=== PATIENT | female | born 1960 | race Caucasian/White ===

== ENCOUNTER 2019-01-12 23:16 | Emergency (ER) | payer SELFPAY ==
[2019-01-12 23:53] VITALS: BP 108/74; PULSE 90; TEMP 97.6; BMI 31.9
--- NOTE | 2019-01-13 00:51 | PDOC ---
History of Present Illness - General Chief Complaint: Headache Stated Complaint: PAIN/DIARRHEA/HEADACHE Time Seen by Provider: 01/13/19 00:50 - History of Present Illness Initial Comments: 01/13/19 00:50 Ms. Santa is a 58 yo female w/ pmh of diverticulitis in the past who presents for evaluation of symptoms of 3 day history of abdominal pain with nausea and multiple episodes of diarrhea. Patient denies any vomiting however also endorses fever yesterday and 2 day history of frontal headache that was slow in onset and she describes as frontal. Of note, daughter's is sick with the same symptoms over the same time course. The patient denies chest pain, shortness of breath, and dizziness. Denies chills , vomit, and constipation. Denies dysuria, frequency, urgency and hematuria. Past History - Past Medical History Allergies/Adverse Reactions: Allergies Allergy/AdvReac Type Severity Reaction Status Date / Time No Known Allergies Allergy Verified 01/12/19 23:53 - Suicide/Smoking/Psychosocial Hx Smoking History: Never smoked Have you smoked in the past 12 months: No Information on smoking cessation initiated: No Hx Alcohol Use: No Drug/Substance Use Hx: No Review of Systems - Review of Systems Comments:: 01/13/19 00:51 GENERAL/CONSTITUTIONAL: +Fever as described. No chills. No weakness. HEAD, EYES, EARS, NOSE AND THROAT: No change in vision. No ear pain or discharge. No sore throat. CARDIOVASCULAR: No chest pain or shortness of breath RESPIRATORY: No cough, wheezing, or hemoptysis. GASTROINTESTINAL: +Multiple episodes of diarrhea. Nausea without vomiting or constipation. GENITOURINARY: No dysuria, frequency, or change in urination. MUSCULOSKELETAL: No joint or muscle swelling or pain. No neck or back pain. SKIN: No rash NEUROLOGIC: +Headache as described. No vertigo, loss of consciousness, or change in strength/sensation. ENDOCRINE: No increased thirst. No abnormal weight change HEMATOLOGIC/LYMPHATIC: No anemia, easy bleeding, or history of blood clots. ALLERGIC/IMMUNOLOGIC: No hives or skin allergy. *Physical Exam - Vital Signs Last Vital Signs Temp Pulse Resp BP Pulse Ox 97.6 F 90 18 108/74 98 01/12/19 23:18 01/12/19 23:18 01/12/19 23:18 01/12/19 23:18 01/12/19 23:18 - Physical Exam Comments: 01/13/19 00:51 GENERAL: Awake, alert, and fully oriented, in no acute distress HEAD: No signs of trauma, normocephalic, atraumatic EYES: PERRLA, EOMI, sclera anicteric, conjunctiva clear ENT: Auricles normal inspection, hearing grossly normal, nares patent, oropharynx clear without exudates. Moist mucosa NECK: Normal ROM, supple, no lymphadenopathy, JVD, or masses LUNGS: No distress, speaks full sentences, clear to auscultation bilaterally HEART: Regular rate and rhythm, normal S1 and S2, no murmurs, rubs or gallops, peripheral pulses normal and equal bilaterally. ABDOMEN: +Diffuse abdominal discomfort to palpation. Soft, normoactive bowel sounds. No guarding, no rebound. No masses EXTREMITIES: Normal inspection, Normal range of motion, no edema. No clubbing or cyanosis. NEUROLOGICAL: Cranial nerves II through XII grossly intact. Normal speech, normal gait, no focal sensorimotor deficits SKIN: Warm, Dry, normal turgor, no rashes or lesions noted. ED Treatment Course - LABORATORY CBC & Chemistry Diagram: 01/13/19 01:51 01/13/19 01:51 Medical Decision Making - Medical Decision Making 01/13/19 03:07 Ms. Santa is a 58 yo female w/ pmh as described who presents for evaluation of symptoms concerning for diverticulitis vs. viral illness vs. GERD. Patient evaluated with labs as below and given hydration with symptomatic medications. Patient labs grossly wnl. Patient reporting improvement of symptoms with this treatment. Patient history most consistent w/ viral illness. Patient currently pending PO challenge. 01/13/19 04:24 Patient successfully passed PO challenge. Discharging to home. Laboratory Results - last 24 hr 01/13/19 01/13/19 01/13/19 01:51 01:51 03:08 WBC 7.2 RBC 4.32 Hgb 12.9 Hct 37.8 MCV 87.6 MCH 30.0 MCHC 34.2 RDW 13.7 Plt Count 231 MPV 7.2 L Absolute Neuts (auto) 4.7 Neutrophils % 65.2 Lymphocytes % 26.1 Monocytes % 7.5 Eosinophils % 0.8 Basophils % 0.4 Nucleated RBC % 0 Sodium 137 Potassium 4.2 Chloride 107 Carbon Dioxide 25 Anion Gap 5 L BUN 9 Creatinine 0.5 L Est GFR (CKD-EPI)AfAm 125.40 Est GFR (CKD-EPI)NonAf 108.19 Random Glucose 97 Calcium 8.9 Total Bilirubin 0.5 AST 30 ALT 21 Alkaline Phosphatase 86 Total Protein 6.9 Albumin 3.4 Lipase 106 Urine Color Yellow Urine Appearance Clear Urine pH 5.5 Ur Specific [place] 1.008 L Urine Protein Negative Urine Glucose (UA) Negative Urine Ketones Negative Urine Blood 1+ H Urine Nitrite Negative Urine Bilirubin Negative Urine Urobilinogen 0.2 Ur Leukocyte Esterase Trace Urine WBC (Auto) 5-10 Urine RBC (Auto) 3-5 Urine Casts (Auto) 0 U Pathogenic Cast Auto 0 U Epithel Cells (Auto) 3-5 Urine Bacteria (Auto) Few Urine Yeast (Auto) Negative *DC/Admit/Observation/Transfer Diagnosis at time of Disposition: Abdominal pain Qualifiers: Abdominal location: unspecified location Qualified Code(s): R10.9 - Unspecified abdominal pain - Discharge Dispostion Disposition: HOME Condition at time of disposition: Fair - Referrals - Patient Instructions Printed Discharge Instructions: DI for Abdominal Pain-Adult Additional Instructions: You were evaluated today in the ER for your symptoms. We performed laboratory evaluation and gave you medications for your symptoms. Your labs were non- concerning and your symptoms improved with medication. We believe you have a viral illness. You may take over the counter tylenol for your pain. Make sure to drink plenty of fluids. Return to ER if any change in abdominal pain, fever, chills, or other concerning symptoms. Usted fue evaluado hoy en la katia de emergencias por giovanna sntomas. Realizamos damien evaluacin de laboratorio y le dimos medicamentos para giovanna sntomas. Giovanna laboratorios no fueron preocupantes y giovanna sntomas mejoraron con la medicacin. Creemos que tienes damien enfermedad viral. Usted puede jocy el tylenol contador para damon dolor. Asegrese de beber muchos lquidos. Regrese a la katia de emergencias si hay algn cambio en el dolor abdominal, fiebre, escalofros u otros sntomas relacionados. Print Language: HEBREW - Post Discharge Activity
[2019-01-13] MEDS ORDERED: SODIUM CHLORIDE 1,000 ML IV STA (01:03)
[2019-01-13] MEDS ORDERED: ACETAMINOPHEN 1000 MG/100 ML VIAL (NON FORMULARY) IVPB ONE (01:03)
[2019-01-13] MEDS ORDERED: FAMOTIDINE 20 MG/50 ML IVPB 20 MG/50 ML MG IVPB ONE ×2 (01:03→01:48)
[2019-01-13] MEDS ORDERED: ONDANSETRON 4 MG/2 ML VIAL IVPUSH ONE (01:03)
[2019-01-13] MEDS ORDERED: ACETAMINOPHEN INJECTION 100 ML IVPB ONE (01:47)
[2019-01-13] MEDS ORDERED: ONDANSETRON 4 MG/2 ML VIAL ONE (01:47)
[2019-01-13 02:03] LABS: BASO % 0.4 % (0-2.0); EOS % 0.8 % (0-4.5); HEMATOCRIT 37.8 % (32.4-45.2); HEMOGLOBIN 12.9 GM/dL (10.7-15.3); LYMPH % 26.1 % (8-40); MCHC 34.2 g/dl (32.0-36.0); MEAN CELL VOLUME 87.6 fl (80-96); MEAN PLT VOLUME 7.2 fl (7.5-11.1); MONO % 7.5 % (3.8-10.2); NEUT % 65.2 % (42.8-82.8); PLATELET COUNT 231 K/MM3 (134-434); RBC 4.32 M/mm3 (3.60-5.2); RDW 13.7 % (11.6-15.6); WHITE BLOOD COUNT 7.2 K/mm3 (4.0-10.0)
--- NOTE | 2019-01-13 02:32 | PDOC ---
Documentation entered by Migdalia Park SCRIBE, acting as scribe for Sukhwinder Miguel MD. Sukhwinder Miguel MD: This documentation has been prepared by the Vivian cardenas Daisy, SCRIBE, under my direction and personally reviewed by me in its entirety. I confirm that the documentation accurately reflects all work, treatment, procedures, and medical decision making performed by me. Attending Attestation - Resident Resident Name: ErvinadryStas - ED Attending Attestation I have performed the following: I have examined & evaluated the patient, The case was reviewed & discussed with the resident, I agree w/resident's findings & plan, Exceptions are as noted - HPI HPI: 01/13/19 01:01 The patient is a 58YOF with a PMH of diverticulitis who presents to the ER with a 3 day history of abdominal pain, nausea, and diarrhea. Pt states that she started having symptoms 3 days ago. Endorses one day of fevers but none today. States that she has pain all over her abdomen. Has been having several episodes of loose nonbloody stool per day. Endorses nausea without vomiting. She reports the symptoms do not feel similar to her prior diverticulitis. Positive sick contact at home. Allergies: NKDA - Physicial Exam PE: 01/13/19 02:31 "GENERAL: Awake, alert, and fully oriented, in no acute distress. HEAD: No signs of trauma EYES: PERRLA, EOMI, sclera anicteric, conjunctiva clear ENT: Auricles normal inspection, hearing grossly normal, nares patent, oropharynx clear without exudates. Moist mucosa NECK: Nontender, no stepoffs, Normal ROM, supple, no lymphadenopathy, JVD, or masses LUNGS: Breath sounds equal, clear to auscultation bilaterally. No wheezes, and no crackles HEART: Regular rate and rhythm, normal S1 and S2, no murmurs, rubs or gallops ABDOMEN: Soft, nontender, normoactive bowel sounds. No guarding, no rebound. No masses EXTREMITIES: Normal range of motion, no edema. No clubbing or cyanosis. No cords, erythema, or tenderness NEUROLOGICAL: Cranial nerves II through XII intact. 5/5 strength and sensation in all extremities, Normal speech, normal gait, normal cerebellar function SKIN: Warm, Dry, normal turgor, no rashes or lesions noted. - Medical Decision Making 01/13/19 02:31 58 F with nausea, abdominal pain, and diarrhea. Suspect gastroenteritis. Pt without any abdominal tenderness on exam, making diverticulitis/colitis/appy unlikely. - Labs - IVF, GI cocktail - PO trial 01/13/19 02:54 Labs wnl Will PO challenge
[2019-01-13 02:51] LABS: ALBUMIN 3.4 g/dl (3.4-5.0); BILIRUBIN,TOTAL 0.5 mg/dL (0.2-1); CALCIUM 8.9 mg/dL (8.5-10.1); CREATININE 0.5 mg/dL (0.55-1.3); POTASSIUM 4.2 mmol/L (3.5-5.1); TOT PROT 6.9 g/dl (6.4-8.2)
[2019-01-13 03:41] LABS: PH,URINE 5.5 (5.0-8.0); URINE APPEARANCE CLEAR; URINE BILIRUBIN NEGATIVE (NEGATIVE); URINE COLOR YELLOW; URINE GLUCOSE (UA) NEGATIVE (NEGATIVE); URINE KETONE NEGATIVE (NEGATIVE); URINE LEUK ESTERASE TRACE (NEGATIVE); URINE NITRITE NEGATIVE (NEGATIVE); URINE PROTEIN NEGATIVE (NEGATIVE); URINE UROBILINOGEN 0.2 mg/dL (0.2-1.0)
[2019-01-13 04:04] LABS: URINE BACTERIA FEW /hpf (NEGATIVE); URINE CASTS 0 /lpf (0-8)
[2019-01-13 04:05] LABS: YEAST NEGATIVE (NEGATIVE)
== END 2019-01-13 04:36 | disposition home or self-care (01) ==
LOC: JER 23:16
PROC: 3E033GC Introduction of Other Therapeutic Substance into Peripheral Vein, Percutaneous Approach (ICD-10-PCS; principal; 2019-01-12)
PROC: 3E033GC Introduction of Other Therapeutic Substance into Peripheral Vein, Percutaneous Approach (ICD-10-PCS; 2019-01-12)
PROC: 3E033NZ Introduction of Analgesics, Hypnotics, Sedatives into Peripheral Vein, Percutaneous Approach (ICD-10-PCS; 2019-01-12)
DX: R10.9 Unspecified abdominal pain (principal)
CPT/HCPCS: 36415; 80053; 81003; 83690; 85025; 87086; 99283-25; J0131; J7030

== ENCOUNTER 2022-06-18 21:41 | Inpatient (IN) | payer OTHER ==
[2022-06-18] MEDS ORDERED: ACETAMINOPHEN 1000 MG/100 ML BAG IVPB ONE (22:39)
[2022-06-18] MEDS ORDERED: LACTATED RINGERS SOLUTION 1,000 ML/1,000 ML INFUS.BAG IV SCH (22:45)
[2022-06-18] MEDS ORDERED: ACETAMINOPHEN INJECTION 100 ML IVPB ONE (22:56)
[2022-06-18 23:21] LABS: BASO % 0.5 % (0-2.0); EOS % 1.5 % (0-4.5); HEMOGLOBIN 12.5 GM/dL (10.7-15.3); LYMPH % 31.7 % (8-40); MCH 29.9 pg (25.7-33.7); MCHC 34.6 g/dl (32.0-36.0); MEAN CELL VOLUME 86.2 fl (80-96); MEAN PLT VOLUME 6.5 fl (7.5-11.1); MONO % 10.3 % (3.8-10.2); PLATELET COUNT 273 10^3/uL (134-434); RBC 4.18 M/mm3 (3.60-5.2); RDW 14.1 % (11.6-15.6); WHITE BLOOD COUNT 8.7 K/mm3 (4.0-10.0)
[2022-06-18] MEDS ORDERED: morphine CARPU-JECT 2 MG/1 ML DISP.SYRIN IVPUSH ONE (23:41)
[2022-06-18 23:43] LABS: ALBUMIN 3.2 g/dl (3.4-5.0); BLOOD UREA NITROGEN 7.2 mg/dL (7-18); CALCIUM 8.7 mg/dL (8.5-10.1)
[2022-06-18 23:46] LABS: BILIRUBIN,TOTAL 0.3 mg/dL (0.2-1); CREATININE 0.5 mg/dL (0.55-1.3)
[2022-06-18 23:47] LABS: TOT PROT 6.8 g/dl (6.4-8.2)
[2022-06-19] MEDS ORDERED: ALBUTEROL SO4 0.083% IH SOL 2.5 MG/3 ML VIAL.NEB. NEB ONE (00:29)
[2022-06-19 02:57] LABS: EPI CELLS 20 /uL (0-25.1); HYALINE CASTS 0 /uL (0-3.1); PH,URINE 6.5 (5.0-8.0); URINE APPEARANCE CLEAR; URINE BACTERIA 493 /uL (0-1359); URINE BILIRUBIN NEGATIVE (NEGATIVE); URINE COLOR YELLOW; URINE GLUCOSE (UA) NEGATIVE (NEGATIVE); URINE KETONE NEGATIVE (NEGATIVE); URINE LEUK ESTERASE NEGATIVE (NEGATIVE); URINE NITRITE NEGATIVE (NEGATIVE); URINE PROTEIN NEGATIVE (NEGATIVE); URINE RBC 30 /uL (0-23.9); URINE UROBILINOGEN 0.2 mg/dL (0.2-1.0); URINE WBC 16 /uL (0-25.8)
[2022-06-19] MEDS ORDERED: PIPERACILLIN/TAZOB 4.5 GM 4.5 GM in DEXTROSE 5%-WATER 100 ML IVPB ONE (11:00)
[2022-06-19] MEDS ORDERED: PIPERACILLIN/TAZOB 4.5 GM 4.5 GM/100 ML BAG IVPB ONE (12:00)
[2022-06-19] MEDS ORDERED: CEFTRIAXONE 1 GM/50 ML BAG ONE (12:01)
[2022-06-19 13:27] VITALS: BMI 30.2
[2022-06-19] MEDS ORDERED: ACETAMINOPHEN 500 MG TABLET (FP) PO PRN (20:38)
[2022-06-19] MEDS ORDERED: LACTATED RINGERS SOLUTION 1,000 ML/1,000 ML INFUS.BAG IV SCH (20:45)
[2022-06-19] MEDS ORDERED: ZOLPIDEM TARTRATE 5 MG TABLET PO ONE (23:42)
[2022-06-20] MEDS ORDERED: CEFTRIAXONE 1 GM in DEXTROSE 5%-WATER - 50 ML IVPB SCH (10:00)
[2022-06-20 10:24] LABS: BASO % 0.7 % (0-2.0); HEMATOCRIT 36.2 % (32.4-45.2); HEMOGLOBIN 12.7 GM/dL (10.7-15.3); LYMPH % 35.3 % (8-40); MCHC 35.1 g/dl (32.0-36.0); MEAN CELL VOLUME 85.5 fl (80-96); MEAN PLT VOLUME 6.4 fl (7.5-11.1); MONO % 7.9 % (3.8-10.2); NEUT % 55.1 % (42.8-82.8); PLATELET COUNT 296 10^3/uL (134-434); RBC 4.24 M/mm3 (3.60-5.2); RDW 13.8 % (11.6-15.6); WHITE BLOOD COUNT 5.5 K/mm3 (4.0-10.0)
[2022-06-20 10:33] LABS: INR 1.15 (0.83-1.09); PROTHROMBIN TIME (PATIENT) 13.2 SEC (9.7-13.0)
[2022-06-20 10:36] LABS: ACTIVATED PTT 31.2 SECONDS (25.2-36.5)
[2022-06-20 10:50] LABS: ALBUMIN 3.2 g/dl (3.4-5.0); BLOOD UREA NITROGEN 6.7 mg/dL (7-18); CALCIUM 9.2 mg/dL (8.5-10.1)
[2022-06-20 10:54] LABS: CREATININE 0.5 mg/dL (0.55-1.3)
[2022-06-20 10:55] LABS: BILIRUBIN,TOTAL 0.4 mg/dL (0.2-1); TOT PROT 6.6 g/dl (6.4-8.2)
[2022-06-20] MEDS ORDERED: BUPIVACAINE HCL/PF 0.5% (5MG/ML) 10 ML VIAL ONE (13:21)
[2022-06-20] MEDS ORDERED: BUPIVACAINE HCL/PF 0.25% (2.5MG/ML) 10 ML VIAL ONE (13:21)
[2022-06-20] MEDS ORDERED: BUPIVACAINE HCL/PF 0.25% (2.5MG/ML) 10 ML VIAL IJ ONE ×4 (13:45→15:17)
[2022-06-20] MEDS ORDERED: SUCCINYLCHOLINE CHLORIDE 200 MG/10 ML SYRINGE ONE (14:43)
[2022-06-20] MEDS ORDERED: ROCURONIUM BROMIDE 50 MG/5 ML SYRINGE ONE (14:43)
[2022-06-20] MEDS ORDERED: PROPOFOL 20 ML ONE (14:43)
[2022-06-20] MEDS ORDERED: ONDANSETRON 4 MG/2 ML VIAL IVPUSH PRN ×2 (14:45→16:20)
[2022-06-20] MEDS ORDERED: LACTATED RINGERS SOLUTION 1,000 ML IV SCH (14:45)
[2022-06-20] MEDS ORDERED: ALBUTEROL SO4 0.083% IH SOL 2.5 MG/3 ML VIAL.NEB. NEB ONE (14:56)
[2022-06-20] MEDS ORDERED: ONDANSETRON 4 MG/2 ML VIAL ONE (15:05)
[2022-06-20] MEDS ORDERED: DEXAMETHASONE SOD PHOSPHATE 4 MG/1 ML VIAL ONE (15:05)
[2022-06-20] MEDS ORDERED: KETOROLAC TROMETHAMINE 30 MG/1 ML VIAL ONE (15:05)
[2022-06-20] MEDS ORDERED: HYDROmorphone HCl 2 MG/ML VIAL ONE (15:28)
[2022-06-20] MEDS ORDERED: GLYCOPYRROLATE 0.2 MG/1 ML VIAL ONE ×2 (15:29)
[2022-06-20] MEDS ORDERED: NEOSTIGMINE METHYLSULFATE 0.5 MG/ML - 10 ML MDV ONE (15:29)
[2022-06-20] MEDS ORDERED: ACETAMINOPHEN 500 MG TABLET (FP) PO PRN (16:20)
[2022-06-20] MEDS ORDERED: oxyCODONE HCL 5 MG TABLET PO PRN (16:36)
[2022-06-20] MEDS: LACTATED RINGERS SOLUTION 1,000 ML IV SCH (17:55)
[2022-06-21] MEDS ORDERED: MELATONIN 5 MG TABLETS PO ONE (00:04)
[2022-06-21 04:31] VITALS: RESP 18
[2022-06-21 08:59] LABS: HEMATOCRIT 36.5 % (32.4-45.2); HEMOGLOBIN 12.5 GM/dL (10.7-15.3); MCH 29.3 pg (25.7-33.7); MCHC 34.3 g/dl (32.0-36.0); MEAN CELL VOLUME 85.4 fl (80-96); MEAN PLT VOLUME 6.5 fl (7.5-11.1); PLATELET COUNT 326 10^3/uL (134-434); RBC 4.28 M/mm3 (3.60-5.2); RDW 13.5 % (11.6-15.6); WHITE BLOOD COUNT 10.6 K/mm3 (4.0-10.0)
[2022-06-21 09:28] LABS: ALBUMIN 2.9 g/dl (3.4-5.0); CALCIUM 9.1 mg/dL (8.5-10.1); MAGNESIUM 1.8 mg/dL (1.8-2.4)
[2022-06-21 09:31] LABS: CREATININE 0.5 mg/dL (0.55-1.3)
[2022-06-21 09:32] LABS: PHOSPHOROUS 3.9 mg/dL (2.5-4.9)
[2022-06-21 09:33] LABS: BILIRUBIN,TOTAL 0.4 mg/dL (0.2-1); TOT PROT 6.2 g/dl (6.4-8.2)
[2022-06-21 11:04] LABS: ERYTHROCYTE SEDIMENTATION RATE 23 mm/hr (0-30)
[2022-06-21 16:07] VITALS: BP 133/71; PULSE 72; TEMP 98.8
[2022-06-21] MEDS: LACTATED RINGERS SOLUTION 1,000 ML IV SCH (18:54)
== END 2022-06-21 20:30 | disposition home or self-care (01) | DRG 263 ==
LOC: JER 21:41 → JERBED 06-19 11:01 → J8W 06-19 12:41
PROVIDERS: ADMIT Internal Medicine; ATTEND Internal Medicine
PROC: 0FT44ZZ Resection of Gallbladder, Percutaneous Endoscopic Approach (ICD-10-PCS; principal; 2022-06-20 17:30)
DX: K80.12 Calculus of gallbladder with acute and chronic cholecystitis without obstruction (principal); R10.11 Right upper quadrant pain
CPT/HCPCS: 36415; 74177-TC; 76705-TC; 80053; 81003; 83690; 83735; 84100; 85025; 85027; 85610; 85651; 85730; 86140; 86850; 86900; 86901; 87086; 88304-TC; 94010; 94760; 99285-25; C9803-CS; Q9967; U0003; U0005

== ENCOUNTER 2022-06-26 19:33 | Inpatient (IN) | payer OTHER ==
[2022-06-26 19:45] VITALS: BMI 30.2
[2022-06-26] MEDS ORDERED: IBUPROFEN 600 MG TABLET (FP) PO ONE ×2 (21:17→21:57)
[2022-06-26 22:11] LABS: BASO % 0.7 % (0-2.0); HEMATOCRIT 40.1 % (32.4-45.2); HEMOGLOBIN 13.9 GM/dL (10.7-15.3); LYMPH % 26.1 % (8-40); MCH 29.9 pg (25.7-33.7); MCHC 34.6 g/dl (32.0-36.0); MEAN CELL VOLUME 86.5 fl (80-96); MEAN PLT VOLUME 6.3 fl (7.5-11.1); MONO % 6.9 % (3.8-10.2); NEUT % 64.3 % (42.8-82.8); PLATELET COUNT 409 10^3/uL (134-434); RBC 4.64 M/mm3 (3.60-5.2); RDW 13.7 % (11.6-15.6); WHITE BLOOD COUNT 11.4 K/mm3 (4.0-10.0)
[2022-06-26 22:24] LABS: CALCIUM 9.4 mg/dL (8.5-10.1)
[2022-06-26 22:28] LABS: CREATININE 0.6 mg/dL (0.55-1.3)
[2022-06-26 22:29] LABS: BILIRUBIN,TOTAL 0.3 mg/dL (0.2-1); TOT PROT 7.8 g/dl (6.4-8.2)
[2022-06-26 22:45] LABS: ALBUMIN 3.6 g/dl (3.4-5.0)
[2022-06-26] MEDS ORDERED: ACETAMINOPHEN 1000 MG/100 ML BAG IVPB ONE (22:46)
[2022-06-26] MEDS ORDERED: SODIUM CHLORIDE 0.9% 500 ML INFUS.BAG IV ONE (22:46)
[2022-06-26] MEDS ORDERED: ACETAMINOPHEN INJECTION 100 ML IVPB ONE (22:52)
[2022-06-27] MEDS ORDERED: morphine CARPU-JECT 2 MG/1 ML DISP.SYRIN IVPUSH ONE (02:12)
[2022-06-27 05:47] VITALS: BP 131/64; PULSE 67; RESP 20; TEMP 98.4
[2022-06-27] MEDS ORDERED: ENOXAPARIN NA (PORCINE) 40 MG/0.4 ML DISP.SYRIN SQ SCH (10:00)
[2022-06-27] MEDS ORDERED: ENOXAPARIN NA (PORCINE) 40 MG/0.4 ML DISP.SYRIN SQ ONE (12:26)
[2022-06-27 13:21] LABS: BASO % 0.6 % (0-2.0); EOS % 1.7 % (0-4.5); HEMATOCRIT 38.7 % (32.4-45.2); HEMOGLOBIN 13.4 GM/dL (10.7-15.3); MCH 29.9 pg (25.7-33.7); MCHC 34.7 g/dl (32.0-36.0); MEAN CELL VOLUME 86.1 fl (80-96); MEAN PLT VOLUME 6.5 fl (7.5-11.1); MONO % 6.8 % (3.8-10.2); NEUT % 61.9 % (42.8-82.8); PLATELET COUNT 377 10^3/uL (134-434); RBC 4.49 M/mm3 (3.60-5.2); RDW 14.1 % (11.6-15.6)
[2022-06-27 13:49] LABS: BLOOD UREA NITROGEN 10.8 mg/dL (7-18); CALCIUM 9.1 mg/dL (8.5-10.1)
[2022-06-27 13:50] LABS: ALBUMIN 3.4 g/dl (3.4-5.0); MAGNESIUM 2.2 mg/dL (1.8-2.4)
[2022-06-27 13:53] LABS: CREATININE 0.5 mg/dL (0.55-1.3); PHOSPHOROUS 3.8 mg/dL (2.5-4.9)
[2022-06-27 13:54] LABS: BILIRUBIN,TOTAL 0.5 mg/dL (0.2-1); TOT PROT 7.3 g/dl (6.4-8.2)
== END 2022-06-27 14:40 | disposition home or self-care (01) | DRG 251 ==
LOC: JER 19:33 → JERBED 06-27 02:09
PROVIDERS: ADMIT Internal Medicine; ATTEND Internal Medicine
DX: R10.11 Right upper quadrant pain (principal); M54.89 Other dorsalgia; Z90.49 Acquired absence of other specified parts of digestive tract; M54.10 Radiculopathy, site unspecified; F32.9 Major depressive disorder, single episode, unspecified
CPT/HCPCS: 36415; 74177-TC; 80053; 83735; 84100; 85025; 86140; 93005; 93010; 99285-25; C9803-CS; Q9967; U0003; U0005

== ENCOUNTER 2023-10-21 20:16 | Emergency (ER) | payer OTHER ==
[2023-10-21 20:32] VITALS: BMI 31.9
[2023-10-21 22:30] LABS: EPI CELLS 11 /uL (0-25.1); HYALINE CASTS 0 /uL (0-3.1); URINE APPEARANCE CLEAR; URINE BACTERIA 113 /uL (0-1359); URINE BILIRUBIN NEGATIVE (NEGATIVE); URINE COLOR YELLOW; URINE GLUCOSE (UA) NEGATIVE (NEGATIVE); URINE KETONE NEGATIVE (NEGATIVE); URINE LEUK ESTERASE NEGATIVE (NEGATIVE); URINE NITRITE NEGATIVE (NEGATIVE); URINE PROTEIN NEGATIVE (NEGATIVE); URINE RBC 46 /uL (0-23.9); URINE WBC 10 /uL (0-25.8)
[2023-10-21 22:44] LABS: POTASSIUM 4.4 mmol/L (3.5-5.1)
[2023-10-21 22:46] LABS: ALBUMIN 3.2 g/dl (3.4-5.0); BLOOD UREA NITROGEN 10.6 mg/dL (7-18); CALCIUM 8.8 mg/dL (8.5-10.1)
[2023-10-21 22:50] LABS: CREATININE 0.7 mg/dL (0.55-1.3)
[2023-10-21 22:52] LABS: BILIRUBIN,TOTAL 0.5 mg/dL (0.2-1); TOT PROT 7.4 g/dl (6.4-8.2)
[2023-10-21] MEDS ORDERED: morphine SULFATE 4 MG/ML VIAL ONE (23:24)
[2023-10-21] MEDS: morphine CARPU-JECT 4 MG/1 ML DISP.SYRIN IVPUSH ONE (23:31)
[2023-10-21 23:43] LABS: BASO % 0.5 % (0-2.0); EOS % 1.6 % (0-4.5); HEMATOCRIT 37.1 % (32.4-45.2); HEMOGLOBIN 12.7 GM/dL (10.7-15.3); LYMPH % 29.6 % (8-40); MCH 30.2 pg (25.7-33.7); MCHC 34.2 g/dl (32.0-36.0); MEAN CELL VOLUME 88.3 fl (80-96); MEAN PLT VOLUME 6.9 fl (7.5-11.1); MONO % 8.3 % (3.8-10.2); PLATELET COUNT 281 10^3/uL (134-434); RDW 13.9 % (11.6-15.6); WHITE BLOOD COUNT 12.5 K/mm3 (4.0-10.0)
[2023-10-21 23:50] LABS: INR 1.14 (0.83-1.09); PROTHROMBIN TIME (PATIENT) 13.2 SEC (9.7-13.0)
[2023-10-21 23:52] LABS: ACTIVATED PTT 30.6 SECONDS (25.2-36.5)
[2023-10-22 10:01] VITALS: BP 132/77; PULSE 84; RESP 18; TEMP 100
== END 2023-10-22 10:30 | disposition home or self-care (01) ==
LOC: JER 20:16
PROC: 3E033GC Introduction of Other Therapeutic Substance into Peripheral Vein, Percutaneous Approach (ICD-10-PCS; principal; 2023-10-21)
DX: R06.02 Shortness of breath (principal); K57.32 Diverticulitis of large intestine without perforation or abscess without bleeding; R10.32 Left lower quadrant pain; R07.89 Other chest pain; M79.10 Myalgia, unspecified site; R68.84 Jaw pain; R50.9 Fever, unspecified; M25.539 Pain in unspecified wrist; Z20.822 Contact with and (suspected) exposure to COVID-19
CPT/HCPCS: 0241U-QW; 36415; 71045-TC-FY; 74177-TC; 80053; 81003; 83605; 83690; 84484; 85025; 85610; 85730; 86850; 86900; 86901; 87086; 93005; 93010; 99285-25